=== PATIENT | male | born 1995 | race Caucasian/White ===

== ENCOUNTER 2018-12-10 07:17 | Day surgery (SDC) | payer BC ==
[2018-12-05 12:03] VITALS: BMI 27.3
[~2018-12-10 07:17] MED LIST: DEXAMETHASONE SOD PHOSPHATE 10 MG/ML 1 ML VIAL IV ONE; DEXAMETHASONE SOD PHOSPHATE 4 MG/ML 1 ML VIAL IV ONE; FAMOTIDINE 20 MG/2 ML VIAL IV ONE; HYDROmorphone 0.5 MG/0.5 ML SYRINGE IVP PRN; LACTATED RINGERS 1,000 ML IV SCH; LIDOCAINE 1% 20 ML VIAL (10MG/ML) FOR IV START INTRADERMA PRN; ONDANSETRON 4 MG/2 ML VIAL IVP ONE; SCOPOLAMINE 1.5MG/72HR PATCH TRANSDERM ONE; ceFAZolin IN SWFI 2 GM/20 ML SYRINGE IVP ONE
[2018-12-10 07:48] VITALS: RESP 16
[2018-12-10] MEDS: OXYMETAZOLINE 0.05% NASL SPRAY 1 SPRAY BOTTLE NASAL ONE ×4 (07:49→08:11)
[2018-12-10 08:21] LABS: INR 0.9 (<1.2); Prothrombin Time 9.7 sec (9.0-12.0)
[2018-12-10] MEDS ORDERED: SUCCINYLCHOLINE CHLORIDE 100 MG/5 ML SYR IV ONE (08:50)
[2018-12-10] MEDS ORDERED: fentaNYL (PF) 50 MCG/ML 2 ML AMP ONE (08:50)
[2018-12-10] MEDS ORDERED: LIDOCAINE 1% INJ 10MG/ML (20 ML MDV) ONE (08:50)
[2018-12-10] MEDS ORDERED: MIDAZOLAM 2 MG/2 ML VIAL ONE (08:50)
[2018-12-10] MEDS ORDERED: PROPOFOL 10 MG/ML 20 ML VIAL IV ONE (08:50)
[2018-12-10] MEDS ORDERED: LIDOCAINE 1%-EPI 1:100,000 20 ML VIAL SQ ONE ×2 (09:02)
--- NOTE | 2018-12-10 09:30 | P.OP ---
Date of Procedure: 12/10/18 Preoperative Diagnosis: Deviated nasal septum Inferior turbinate hypertrophy Postoperative Diagnosis: Same Procedure(s) Performed: Septoplasty Outfracture and submucous resection of the inferior turbinates Anesthesia: SAL Surgeon: Tonio Lo Estimated Blood Loss (ml): 5 Pathology: other (Nasal septal bone and cartilage) Condition: stable Disposition: PACU Indications for Procedure: This is a 23-year-old male whose had difficulties with chronic nasal airway obstruction bilaterally right greater than left with a deviated nasal septum as well as inferior turbinate hypertrophy noted. He did not improve with steroid nasal spray Operative Findings: Nasal septum deviated to the right obstructing impression a 90% of the nasal cavity, inferior turbinate hypertrophy Description of Procedure: Patient brought in the operative suite and placed in a supine position. Patient underwent induction of general anesthesia with oral endotracheal intubation without difficulty. The patient was prepped and draped in usual aseptic fashion. 1% lidocaine with 1-100,000 epinephrine was infused submucosally both sides nasal septum. While this is a vasoconstrictive effect the inferior turbinates were infractured the [place] elevator and partial submucous resection inferior turbinates performed with the Cob[place] wand this ablating a portion of the submucosal soft tissue. They were then outfractured with the [place] elevator. A left hemitransfixion incision was made with the mucoperichondrial decompress the flap on the left elevated. Bony cartilaginous junction was disarticulated and across flap on the right was elevated. Bony nasal septal deformities were removed Ave forceps. An inferior cartilaginous strip was removed leaving a full 1.5 cm caudal strut. Checking intranasally this corrected nasoseptal deformities and the hemitransfixion incision was closed with a running 4-0 chromic suture. The patient was then suctioned in oral gastric fashion. The patient allowed to emerge from general anesthesia having tolerated procedure well was extubated in the operating suite and transferred postoperative recovery area in satisfactory condition
[2018-12-10 09:48] VITALS: TEMP 97
[2018-12-10 10:50] VITALS: BP 107/63; PULSE 63
== END 2018-12-10 11:15 | disposition home or self-care (01) ==
LOC: OR 07:17
PROVIDERS: ATTEND Otolaryngology
DX: J34.2 Deviated nasal septum (principal); J34.3 Hypertrophy of nasal turbinates; Z79.01 Long term (current) use of anticoagulants; Z95.2 Presence of prosthetic heart valve; Z82.49 Family history of ischemic heart disease and other diseases of the circulatory system; Z98.61 Coronary angioplasty status
CPT/HCPCS: 85610; 88300; 30520; 30140; J2250; J1100; J2405; J2001; J3010; J0330; J2704; J0690

== ENCOUNTER 2019-10-05 14:10 | Inpatient (IN) | payer BC ==
[2019-10-05] MEDS ORDERED: IPRATROPIUM-ALBUTEROL 3 ML NEB INHALATION STA (14:33)
[2019-10-05] MEDS ORDERED: SODIUM CHLORIDE 0.9% 500 ML 500 ML IV STA (14:33)
[2019-10-05 15:23] LABS: ALT 22 U/L (4-49); AST 48 U/L (17-59); African American GFR (CKD) >90 (>60 ml/min/1.73 sqM); Albumin 3.7 g/dL (3.5-5.0); Alkaline Phosphatase 71 U/L (38-126); Anion Gap 6 mmol/L; Blood Urea Nitrogen 23 mg/dL (9-20); Calcium 8.7 mg/dL (8.4-10.2); Carbon Dioxide 25 mmol/L (22-30); Chloride 104 mmol/L (98-107); Glucose 88 mg/dL (74-99); Magnesium 1.9 mg/dL (1.6-2.3); Non-African American GFR(CKD) >90 (>60 ml/min/1.73 sqM); Potassium 4.5 mmol/L (3.5-5.1); Sodium 135 mmol/L (137-145); Total Protein 6.2 g/dL (6.3-8.2)
[2019-10-05 15:24] LABS: Basophils # (A) 0.1 k/uL (0-0.2); Basophils % (A) 1 %; Eosinophils # (A) 0.7 k/uL (0-0.7); Eosinophils % (A) 7 %; HCT 48.1 % (39.0-53.0); HGB 16.5 gm/dL (13.0-17.5); Lymphocytes # (A) 2.6 k/uL (1.0-4.8); Lymphocytes % (A) 26 %; MCH 30.7 pg (25.0-35.0); MCHC 34.4 g/dL (31.0-37.0); MCV 89.2 fL (80.0-100.0); Mean Platelet Volume 8.1; Monocytes # (A) 0.6 k/uL (0-1.0); Monocytes % (A) 6 %; Neutrophils % (A) 59 %; Platelet Count 264 k/uL (150-450); RBC 5.39 m/uL (4.30-5.90); RDW 13.3 % (11.5-15.5); WBC 10.2 k/uL (3.8-10.6)
--- NOTE | 2019-10-05 15:29 | XR ---
EXAMINATION TYPE: XR chest 2V DATE OF EXAM: 10/05/2019 COMPARISON: 01/09/2016 HISTORY: Difficulty breathing TECHNIQUE: Frontal and lateral views of the chest are obtained. FINDINGS: Cardiomegaly with pulmonary venous congestion and interstitial edema as well as small effusions. No evidence for pneumothorax. No pleural effusion. The cardiac silhouette size is within normal limits. The osseous structures are grossly intact. IMPRESSION: 1. Findings are felt to reflect interstitial edema. Infiltrates of other etiology not excluded.
[2019-10-05 15:31] LABS: Partial Thromboplastin Time 24.9 sec (22.0-30.0); Prothrombin Time 10.3 sec (9.0-12.0)
[2019-10-05] MEDS ORDERED: HEPARIN SODIUM,PORCINE 5,000 UNIT/ML 1 ML VIAL IV PRN (16:14)
[2019-10-05] MEDS ORDERED: HEPARIN SODIUM,PORCINE 5,000 UNIT/ML 1 ML VIAL IV ONE (16:14)
[2019-10-05] MEDS ORDERED: HEPARIN SOD,PORK IN 0.45% NACL 25,000 UNIT in 0.45% NACL 1 250ML.BAG IV SCH (16:15)
--- NOTE | 2019-10-05 16:15 | ED ---
General Adult HPI <Kenji De Santiago - Last Filed: 10/05/19 18:40> - General Source: patient, RN notes reviewed Mode of arrival: ambulatory Limitations: no limitations <Arvind Justice - Last Filed: 10/05/19 18:46> - General Chief complaint: Shortness of Breath Stated complaint: LISET Time Seen by Provider: 10/05/19 14:24 - History of Present Illness Initial comments: This a 23-year-old male presents emergency Department chief complaint of cough congestion chest pain shortness breath. Patient states has not felt well over the last weeks had some URI symptoms. Patient states noticed that he's had mildly productive cough he states he did have some bloody sputum.. Reports productive fevers chills. Patient was seen by his PCP prior arrival. Sent over for further evaluation. He states that he had an EKG there that did not show any specific findings. 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 Patient states he takes Coumadin as he is mechanical valve. Patient states that he has a moderate monthly but states that number is up and down quite often. Patient denies any leg pain, leg swelling he states he does have some mild exertional dyspnea. (Arvind Justice) - Related Data Home Medications Medication Instructions Recorded Confirmed Warfarin [Coumadin] 10 mg PO HS 03/10/15 10/05/19 Allergies Allergy/AdvReac Type Severity Reaction Status Date / Time No Known Allergies Allergy Verified 10/05/19 15:38 Review of Systems ROS Other: All systems not noted in ROS Statement are negative. <Kenji De Santiago - Last Filed: 10/05/19 18:40> ROS Other: All systems not noted in ROS Statement are negative. <Arvind Justice - Last Filed: 10/05/19 18:46> ROS Statement: Those systems with pertinent positive or pertinent negative responses have been documented in the HPI. Past Medical History Additional Past Medical History / Comment(s): ANGIOPLASTY - AORTA FOR HEART MURMUR , WISDOM TEETH , "LEAKY AORTIC VALVE"- HAD AORTIC VALVE REPLACEMENT (MECHANICAL) History of Any Multi-Drug Resistant Organisms: None Reported Additional Past Surgical History / Comment(s): ANGIOPLASTY, AORTIC VALVE REPLACEMENT (MECHANICAL) Past Anesthesia/Blood Transfusion Reactions: No Reported Reaction Past Psychological History: Anxiety Smoking Status: Never smoker Past Alcohol Use History: None Reported Past Drug Use History: None Reported - Past Family History Mother Family Medical History: No Reported History <Arvind Justice - Last Filed: 10/05/19 18:46> General Exam Limitations: no limitations General appearance: alert, in no apparent distress Head exam: Present: atraumatic, normocephalic, normal inspection Eye exam: Present: normal appearance, PERRL, EOMI. Absent: scleral icterus, conjunctival injection, periorbital swelling ENT exam: Present: normal exam, normal oropharynx, mucous membranes moist Neck exam: Present: normal inspection, full ROM. Absent: tenderness, meningismus, lymphadenopathy Respiratory exam: Present: wheezes. Absent: normal lung sounds bilaterally, respiratory distress, rales, rhonchi, stridor Cardiovascular Exam: Present: normal rhythm, tachycardia, normal heart sounds, systolic murmur (Aortic). Absent: diastolic murmur, rubs, gallop, clicks GI/Abdominal exam: Present: soft, normal bowel sounds. Absent: distended, tenderness, guarding, rebound, rigid Extremities exam: Present: pedal edema <Arvind Justice - Last Filed: 10/05/19 18:46> Course <Kenji De Santiago - Last Filed: 10/05/19 18:40> Vital Signs 10/05/19 10/05/19 10/05/19 14:10 14:53 15:04 Temperature 98.0 F Pulse Rate 106 H 90 92 Respiratory 20 Rate Blood Pressure 99/63 O2 Sat by Pulse 95 Oximetry 10/05/19 16:15 Temperature 98.1 F Pulse Rate 101 H Respiratory 20 Rate Blood Pressure 92/43 O2 Sat by Pulse 96 Oximetry - Reevaluation(s) Reevaluation #1: 10/05/19 18:40 PA supervision: I proceeded evaluation this case patient is presenting with congestive heart failure symptoms no shortness of breath exertional dyspnea. He does have a mildly elevated troponin and evidence of elevated BNP x-ray shows findings consistent with congestive heart failure. Dr. Manzano was consulted and did come see the patient in emergency department. CT chest was done no evidence of dissection no evidence of PE. Consistent with CHF. Patient be admitted patient will be admitted to Dr. coley a service with cardiology consultation (eKnji De Santiago) Medical Decision Making - Lab Data Result diagrams: 10/05/19 14:43 10/05/19 14:43 <Kenji De Santiago - Last Filed: 10/05/19 18:40> - Lab Data Result diagrams: 10/05/19 14:43 10/05/19 14:43 <Arvind Justice - Last Filed: 10/05/19 18:46> - Medical Decision Making 23-year-old male presented for cough congestion, shortness breath and chest pain. Patient lab reveal evidence of elevated troponin, elevated BMP. Cardiology was contacted, evaluated in the emergency department by dance hall host/hostess who feel this is most likely related to myocarditis. Patient be admitted for repeat troponin, heparin, Lasix. (Arvind Justice) - Lab Data Lab Results 10/05/19 10/05/19 10/05/19 Range/Units 14:43 14:43 14:43 WBC 10.2 (3.8-10.6) k/uL RBC 5.39 (4.30-5.90) m/uL Hgb 16.5 (13.0-17.5) gm/dL Hct 48.1 (39.0-53.0) % MCV 89.2 (80.0-100.0) fL MCH 30.7 (25.0-35.0) pg MCHC 34.4 (31.0-37.0) g/dL RDW 13.3 (11.5-15.5) % Plt Count 264 (150-450) k/uL Neutrophils % 59 % Lymphocytes % 26 % Monocytes % 6 % Eosinophils % 7 % Basophils % 1 % Neutrophils # 6.0 (1.3-7.7) k/uL Lymphocytes # 2.6 (1.0-4.8) k/uL Monocytes # 0.6 (0-1.0) k/uL Eosinophils # 0.7 (0-0.7) k/uL Basophils # 0.1 (0-0.2) k/uL PT (9.0-12.0) sec INR (<1.2) APTT (22.0-30.0) sec D-Dimer (<0.60) mg/L FEU Sodium 135 L (137-145) mmol/L Potassium 4.5 (3.5-5.1) mmol/L Chloride 104 (98-107) mmol/L Carbon Dioxide 25 (22-30) mmol/L Anion Gap 6 mmol/L BUN 23 H (9-20) mg/dL Creatinine 1.10 (0.66-1.25) mg/dL Est GFR (CKD-EPI)AfAm >90 (>60 ml/min/1.73 sqM) Est GFR (CKD-EPI)NonAf >90 (>60 ml/min/1.73 sqM) Glucose 88 (74-99) mg/dL Calcium 8.7 (8.4-10.2) mg/dL Magnesium 1.9 (1.6-2.3) mg/dL Total Bilirubin 1.0 (0.2-1.3) mg/dL AST 48 (17-59) U/L ALT 22 (4-49) U/L Alkaline Phosphatase 71 (38-126) U/L Troponin I (0.000-0.034) ng/mL NT-Pro-B Natriuret Pep 9530 pg/mL Total Protein 6.2 L (6.3-8.2) g/dL Albumin 3.7 (3.5-5.0) g/dL Influenza Type A RNA (Not Detectd) Influenza Type B (PCR) (Not Detectd) 10/05/19 10/05/19 10/05/19 Range/Units 14:43 14:43 14:43 WBC (3.8-10.6) k/uL RBC (4.30-5.90) m/uL Hgb (13.0-17.5) gm/dL Hct (39.0-53.0) % MCV (80.0-100.0) fL MCH (25.0-35.0) pg MCHC (31.0-37.0) g/dL RDW (11.5-15.5) % Plt Count (150-450) k/uL Neutrophils % % Lymphocytes % % Monocytes % % Eosinophils % % Basophils % % Neutrophils # (1.3-7.7) k/uL Lymphocytes # (1.0-4.8) k/uL Monocytes # (0-1.0) k/uL Eosinophils # (0-0.7) k/uL Basophils # (0-0.2) k/uL PT 10.3 (9.0-12.0) sec INR 1.0 (<1.2) APTT 24.9 (22.0-30.0) sec D-Dimer 0.68 H (<0.60) mg/L FEU Sodium (137-145) mmol/L Potassium (3.5-5.1) mmol/L Chloride (98-107) mmol/L Carbon Dioxide (22-30) mmol/L Anion Gap mmol/L BUN (9-20) mg/dL Creatinine (0.66-1.25) mg/dL Est GFR (CKD-EPI)AfAm (>60 ml/min/1.73 sqM) Est GFR (CKD-EPI)NonAf (>60 ml/min/1.73 sqM) Glucose (74-99) mg/dL Calcium (8.4-10.2) mg/dL Magnesium (1.6-2.3) mg/dL Total Bilirubin (0.2-1.3) mg/dL AST (17-59) U/L ALT (4-49) U/L Alkaline Phosphatase (38-126) U/L Troponin I 1.110 H* (0.000-0.034) ng/mL NT-Pro-B Natriuret Pep pg/mL Total Protein (6.3-8.2) g/dL Albumin (3.5-5.0) g/dL Influenza Type A RNA (Not Detectd) Influenza Type B (PCR) (Not Detectd) 10/05/19 Range/Units 15:48 WBC (3.8-10.6) k/uL RBC (4.30-5.90) m/uL Hgb (13.0-17.5) gm/dL Hct (39.0-53.0) % MCV (80.0-100.0) fL MCH (25.0-35.0) pg MCHC (31.0-37.0) g/dL RDW (11.5-15.5) % Plt Count (150-450) k/uL Neutrophils % % Lymphocytes % % Monocytes % % Eosinophils % % Basophils % % Neutrophils # (1.3-7.7) k/uL Lymphocytes # (1.0-4.8) k/uL Monocytes # (0-1.0) k/uL Eosinophils # (0-0.7) k/uL Basophils # (0-0.2) k/uL PT (9.0-12.0) sec INR (<1.2) APTT (22.0-30.0) sec D-Dimer (<0.60) mg/L FEU Sodium (137-145) mmol/L Potassium (3.5-5.1) mmol/L Chloride (98-107) mmol/L Carbon Dioxide (22-30) mmol/L Anion Gap mmol/L BUN (9-20) mg/dL Creatinine (0.66-1.25) mg/dL Est GFR (CKD-EPI)AfAm (>60 ml/min/1.73 sqM) Est GFR (CKD-EPI)NonAf (>60 ml/min/1.73 sqM) Glucose (74-99) mg/dL Calcium (8.4-10.2) mg/dL Magnesium (1.6-2.3) mg/dL Total Bilirubin (0.2-1.3) mg/dL AST (17-59) U/L ALT (4-49) U/L Alkaline Phosphatase (38-126) U/L Troponin I (0.000-0.034) ng/mL NT-Pro-B Natriuret Pep pg/mL Total Protein (6.3-8.2) g/dL Albumin (3.5-5.0) g/dL Influenza Type A RNA Not Detected (Not Detectd) Influenza Type B (PCR) Not Detected (Not Detectd) Critical Care Time Critical Care Time: Yes Total Critical Care Time: 35 <Arvind Justice - Last Filed: 10/05/19 18:46> Critical Care Time: Total 35 minutes of critical care time were used initially evaluated patient and review past medical history, medications. I did order labs including CBC, CMP, troponin, BMP, d-dimer. Patient's found to have some mild changes in his EKG and V1 through V4, troponin is elevated at 1.1 with a BNP of 9500. Patient does have some evidence of pulmonary edema on chest x-ray Lasix was given at this time. Patient was started on heparin as he is subtherapeutic on his INR from Coumadin. Patient's case discussed with dance hall host/hostess who evaluated the patient in the emergency department and feel this is related to myocarditis as she's had some URI symptoms. Patient will be admitted for further evaluation, repeat troponin, echocardiogram, Lasix. (Arvind Justice) Disposition <Kenji De Santiago - Last Filed: 10/05/19 18:40> <Arvind Justice - Last Filed: 10/05/19 18:46> Clinical Impression: NSTEMI (non-ST elevated myocardial infarction), Acute CHF Disposition: ADMITTED IP TO THIS HOSP Condition: Serious Referrals: Paolo Dolan MD [Primary Care Provider] - 1-2 days
[2019-10-05] MEDS ORDERED: ASPIRIN 81 MG PO STA (16:41)
[2019-10-05] MEDS ORDERED: FUROSEMIDE 10 MG/ML 4 ML VIAL IV STA (17:01)
--- NOTE | 2019-10-05 18:33 | CT ---
EXAMINATION TYPE: CT chest angio for PE DATE OF EXAM: 10/05/2019 COMPARISON: None HISTORY: Shortness of breath and cough CT DLP: 492.1 mGycm Automated exposure control for dose reduction was used. CONTRAST: Performed with IV Contrast, patient injected with 100 mL of Isovue 370. There are 3-D post processed images. There is patchy pulmonary edema. There is some patchy mild nodular infiltrate in both lungs. Heart si ze is normal. There are bilateral pleural effusions. There is no mediastinal adenopathy. There are sternal wires. There is apparent cardiac valve surgery. There is normal contrast opacification of the pulmonary arteries. I see no filling defect. There is e ctasia of the ascending aorta measures 4.2 cm. There is no dissection. The bony thorax is intact. Upp er abdominal soft tissues are intact. IMPRESSION: No evidence of pulmonary embolism. Moderate pulmonary edema with pleural effusions. I would consider congestive heart failure or RDS. 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
[2019-10-05] MEDS ORDERED: NITROGLYCERIN SL TABS 0.4 MG TAB SUBLINGUAL PRN (18:40)
[2019-10-05] MEDS: FUROSEMIDE 10 MG/ML 4 ML VIAL IV SCH (21:04)
--- NOTE | 2019-10-06 01:14 | CONS ---
CONSULTATION CHIEF COMPLAINT: Shortness of breath This is a 23-year-old gentleman with history of aortic valve replacement, who presented to hospital complaining of cough, chest congestion and shortness of breath. He initially presented. Cardiology had been consulted because of mildly elevated troponin. The patient has fever and some chills also. Yesterday, he has had some blood-stained sputum. The patient has history of aortic valve replacement secondary to congenital aortic stenosis apparently at the age of 14 and he is on Coumadin. His INRs are followed at [facility]. At the time of my evaluation in the emergency room, the patient appears comfortable at rest. He is not in distress. Heart rate is elevated. His influenza testing has been negative. INR is subtherapeutic at 1. Patient is currently on IV heparin. His EKG shows sinus rhythm with early repolarization changes. I do not see any acute ST-segment elevation or ischemic T-wave inversions and the patient's troponin is elevated as is the BNP. There are multiple etiological possibilities of the patient's clinical presentation including a viral infection with myopericarditis problem related to his underlying prosthetic valve and we certainly have to rule out a bacterial infection in a patient who has mechanical valve and thrombosis of mechanical valve due to sub optimal anticoagulation. I am not convinced at this time that we are dealing with myocardial ischemia. The patient's INR is subtherapeutic. He needs to be on IV heparin. We will obtain a 2D echo on him tomorrow morning. CT scan of the chest to assess the aortic root given the mechanical aortic valve and I will also obtain a set of blood cultures on him. The patient received IV Lasix and will decide on further course. We will obtain records from [facility]. We will optimize therapy based on what his investigation shows. PAST MEDICAL HISTORY: Significant for aortic valve replacement. MEDICATIONS: Medications at home include Coumadin. ALLERGIES: There are no known drug allergies. FAMILY HISTORY: Negative for premature coronary artery disease. SOCIAL HISTORY: Negative for current smoking, EtOH abuse, or drug abuse. REVIEW OF SYSTEMS: HEENT is unremarkable. Cardiac as described above. Respiratory as described above. GI negative. Genitourinary negative. Allergy/Immunology: Negative. SKIN: Negative. Musculoskeletal negative. Endocrine, hematological negative. Derm negative. CONSTITUTIONAL: Significant for fever, cough, not feeling well. Rest of the system review is not relevant. EXAM: Patient is comfortable at rest. Heart rate is 100 beats per minute. Afebrile. Blood pressure is 92/43, respiratory rate is 20, O2 sat is 96% on 2 L. There is no jugular venous distention. Chest exam reveals good air entry. I do not hear any crackles or rhonchi. Heart exam reveals first and second heart sounds and ejection systolic murmur. Prosthetic valve sound is not heard clearly. Abdomen is soft. Exam of the extremities did not reveal any edema. Peripheral pulses are felt. ASSESSMENT: 1. Status post aortic valve replacement- rule out infective endocarditis prosthetic valve problems including thrombosis 2. Shortness of breath with elevated BNP suggestive of congestive heart failure. 3. Elevated troponin and rule out myopericarditis. PLAN: We will obtain a 2D echo. CT scan of the chest. Blood cultures. IV heparin because of subtherapeutic INR in a patient with mechanical valve, review his records from [facility]. The patient will be admitted [facility] and depending upon his tests results and is how he evolves, we will decide on further course of action in a patient who is subtherapeutic anticoagulated and aortic valve valve thrombosis is also a consideration. MMODL / IJN: [id number] / MTDD
[2019-10-06 07:04] LABS: Basophils # (A) 0.1 k/uL (0-0.2); Basophils % (A) 1 %; Eosinophils # (A) 0.7 k/uL (0-0.7); Eosinophils % (A) 7 %; HCT 46.2 % (39.0-53.0); HGB 15.7 gm/dL (13.0-17.5); Lymphocytes # (A) 2.6 k/uL (1.0-4.8); Lymphocytes % (A) 27 %; MCH 30.8 pg (25.0-35.0); MCV 90.8 fL (80.0-100.0); Mean Platelet Volume 7.5; Monocytes # (A) 0.5 k/uL (0-1.0); Monocytes % (A) 6 %; Neutrophils # (A) 5.7 k/uL (1.3-7.7); Neutrophils % (A) 58 %; Platelet Count 212 k/uL (150-450); RBC 5.09 m/uL (4.30-5.90); RDW 13.1 % (11.5-15.5); WBC 9.8 k/uL (3.8-10.6)
[2019-10-06 07:12] LABS: Partial Thromboplastin Time 51.2 sec (22.0-30.0); Prothrombin Time 10.4 sec (9.0-12.0)
[2019-10-06 07:27] LABS: Cholesterol 177 mg/dL (<200); HDL Cholesterol 49 mg/dL (40-60); LDL Cholesterol,Calculated 112 mg/dL (0-99); Triglycerides 78 mg/dL (<150)
[2019-10-06 08:40] VITALS: TEMP 98.7
[2019-10-06] MEDS: FUROSEMIDE 10 MG/ML 4 ML VIAL IV SCH (08:41)
[2019-10-06] MEDS ORDERED: ASPIRIN 325 MG TAB PO SCH (09:00)
--- NOTE | 2019-10-06 09:18 | P.PN ---
Subjective Progress Note Date: 10/06/19 This is a 23-year-old gentleman with history of aortic valve replacement secondary to congenital aortic stenosis at the age of 14, he takes Coumadin. His INR on admission here was subtherapeutic at 1. He states that it's been quite sometime since he's had his INR checked. He usually takes 10 mg of Coumadin per day. Patient initially presented to the hospital on this occasion with symptoms of progressively worsening shortness of breath which she states she's been experiencing for the past couple of weeks at work when he lifts heavy things or walks a short distance, in the past few days he states that the shortness of breath has been present even with minimal activity, he has significant PND and orthopnea. Denies any recent fever or chills at home. Patient was seen last evening in consultation by Dr. Manzano, his chest x-ray showed interstitial pulmonary edema. A CTA of the chest was performed which did not reveal evidence of a pulmonary embolism. Moderate pulmonary edema with b ilateral pleural effusions. Aneurysm of the ascending aorta. His EKG on presentation here showed a sinus tachycardia with nonspecific ST-T wave changes. The patient has been afebrile here, blood pressure running in the 90s systolic. He needs to be tachycardic this morning. His white blood cell count is normal at 9.8, hemoglobin 15.7, platelet count 212. Troponins 1.1, 1.3, 1.6. Initial BNP on presentation here 9530. Influenza A and B-. The patient was given an aspirin on arrival and initiated on IV heparin which she continues to be on at this time. He was also started on IV Lasix. The patient's blood pressure this morning 85/40 with a heart rate of 108, 94% on 4 L of oxygen. Objective - Vital Signs Vital signs: Vital Signs Temp 98.7 F 10/06/19 07:50 Pulse 109 H 10/06/19 07:50 Resp 16 10/06/19 07:50 BP 85/49 10/06/19 07:50 Pulse Ox 91 L 10/06/19 07:54 Intake & Output 10/05/19 10/06/19 10/06/19 18:59 06:59 18:59 Intake Total 611.293 Output Total 1250 Balance -638.707 Weight 85.956 kg Intake: Intake, IV Titration 611.293 Amount Heparin Sod,Pork in 0.45% 111.293 NaCl 25,000 unit In 0.45 % NaCl 1 250ml.bag @ 11.6 UNITS/KG/HR 9.971 mls/hr IV .Q24H [facility] Rx#: [id number] Sodium Chloride 0.9% 500 500 ml 500 ml @ 999 mls/hr IV .Q31M [facility] Rx#:[id number] Output: Urine 1250 - Exam PHYSICAL EXAMINATION: GENERAL: 23-year-old gentleman in no acute distress at the time of my examination HEENT: Head is atraumatic, normocephalic. Pupils equal, round. Sclera anicteric. Conjunctiva are clear. Mucous membranes of the mouth are moist. N jhoan is supple. There is elevated jugular venous pressure. No carotid bruit is heard. HEART EXAMINATION: Heart S1 and S2 systolic ejection murmur is heard in the aortic and mitral area, prosthetic valve sound heard CHEST EXAMINATION: Lungs reveal diminished air entry bilaterally ABDOMEN: Soft, nontender. Bowel sounds are heard. No organomegaly noted. EXTREMITIES: 2+ peripheral pulses with no evidence of peripheral edema and no calf tenderness noted. NEUROLOGIC patient is awake, alert and oriented 3 . . - Labs CBC & Chem 7: 10/06/19 06:47 10/05/19 14:43 Labs: Abnormal Lab Results - Last 24 Hours (Table) 10/05/19 10/05/19 10/05/19 Range/Units 14:43 14:43 14:43 APTT (22.0-30.0) sec D-Dimer 0.68 H (<0.60) mg/L FEU Sodium 135 L (137-145) mmol/L BUN 23 H (9-20) mg/dL Troponin I 1.110 H* (0.000-0.034) ng/mL Total Protein 6.2 L (6.3-8.2) g/dL LDL Cholesterol, Calc (0-99) mg/dL 10/05/19 10/05/19 10/06/19 Range/Units 21:50 21:50 02:25 APTT 34.6 H (22.0-30.0) sec D-Dimer (<0.60) mg/L FEU Sodium (137-145) mmol/L BUN (9-20) mg/dL Troponin I 1.340 H* 1.680 H* (0.000-0.034) ng/mL Total Protein (6.3-8.2) g/dL LDL Cholesterol, Calc (0-99) mg/dL 10/06/19 10/06/19 Range/Units 06:47 06:47 APTT 51.2 H (22.0-30.0) sec D-Dimer (<0.60) mg/L FEU Sodium (137-145) mmol/L BUN (9-20) mg/dL Troponin I (0.000-0.034) ng/mL Total Protein (6.3-8.2) g/dL LDL Cholesterol, Calc 112 H (0-99) mg/dL Assessment and Plan Plan: Assessment and plan #1 congestive heart failure, LV function unknown #2 sinus tachycardia #3 history of mechanical aortic valve replacement with subtherapeutic INR on presentation #4 abnormal troponins, 1.1, 1.3, 1.6. EKG shows a sinus tachycardia with nonspecific ST-T wave changes. Plan An echocardiogram with Doppler study was performed this morning, [facility] Patient has been initiated on IV Lasix as well as IV heparin. He remains hypotensive, once the blood pressure improves we will attempt to start a small dose of beta gem. Overall prognosis guarded. DNP note has been reviewed, I agree with a documented findings and plan of care. Patient was seen and examined.
[2019-10-06] MEDS ORDERED: NOREPINEPHRINE 4 MG in SODIUM CHLORIDE 0.9% 250 ML IV SCH (10:15)
--- NOTE | 2019-10-06 10:33 | PN ---
PROGRESS NOTE This is a 23-year-old gentleman with history of aortic valve replacement. seen patient late yesterday evening when he presented with symptoms of shortness of breath and had elevated troponin and congestive heart failure. This morning, he appears comfortable at rest, has shortness of breath with O2 saturation of around 94% on 4 L with a heart rate around 105 beats per minute. Chest exam does not reveal crackles. Heart exam reveals first and second heart sounds ejection systolic murmur in the aortic area. Prosthetic valve sound is not heard. Abdomen is soft. Exam of the extremities did not reveal any edema. The patient had a CT scan of the chest last night and that was negative for pulmonary embolism, had pulmonary congestion. He had an echocardiogram done this morning, which has been interpreted at [facility]. I do not have the official report, but apparently patient has significant prosthetic valve obstruction in a patient who has subtherapeutic anticoagulation.Pt is hypotensive and will start levophed. He recieved lasix earlier. 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 MMODL / IJN: [id number] / [id number]
--- NOTE | 2019-10-06 10:45 | P.HPIM ---
History of Present Illness 23-year-old male presented to family physician with complaints of shortness of breath and cough. Complaining of substernal chest pain with sweats. Patient states he has not felt well for 2 weeks accelerated yesterday. Patient has history of congenital aortic stenosis had angioplasty at age 12 H 16 valve replacement prosthetic. Patient had cardiology consultation here was agreed to transfer to [facility] to a Dr. Mills Review of Systems Cardiovascular: Reports chest pain, Reports dyspnea on exertion Respiratory: Reports cough, Reports cough with sputum, Reports dyspnea Past Medical History Additional Past Medical History / Comment(s): Valve angioplasty at age 12 yrs d/t congenital aortic stenosis-unsuccessful, mechanical aortic valve replacement at age 14 yrs-had pneumothorax/chest tube, bronchitis. History of Any Multi-Drug Resistant Organisms: None Reported Past Surgical History: Cardiac Valve Replacement Additional Past Surgical History / Comment(s): Attempted valve angioplasty, mechanical aortic valve replacement, septoplasty, wisdom teeth extractions. Past Anesthesia/Blood Transfusion Reactions: Postoperative Nausea & Vomiting (PONV) Smoking Status: Never smoker - Past Family History Mother Family Medical History: No Reported History Additional Family Medical History / Comment(s): Anxiety Father Family Medical History: No Reported History Additional Family Medical History / Comment(s): Father is healthy. Medications and Allergies Home Medications Medication Instructions Recorded Confirmed Type Warfarin [Coumadin] 10 mg PO HS 03/10/15 10/05/19 History Allergies Allergy/AdvReac Type Severity Reaction Status Date / Time No Known Allergies Allergy Verified 10/05/19 15:38 Physical Exam Vitals: Vital Signs Temp Pulse Pulse Pulse Resp BP BP 10/06/19 07:54 10/06/19 07:50 98.7 F 109 H 16 85/49 10/06/19 05:00 103 H 20 94/58 10/06/19 04:00 97.8 F 99 20 93/65 10/06/19 03:00 101 H 20 90/54 10/06/19 02:46 102 H 20 90/47 10/06/19 01:34 102 H 90/46 10/06/19 00:00 120 H 16 96/54 10/05/19 23:50 105 H 24 10/05/19 20:00 105 H 105 H 25 H 96/59 10/05/19 19:07 102 H 18 90/59 10/05/19 17:00 108 H 23 95/55 10/05/19 16:15 98.1 F 101 H 20 92/43 10/05/19 15:04 92 10/05/19 14:53 90 10/05/19 14:10 98.0 F 106 H 20 99/63 Pulse Ox 10/06/19 07:54 91 L 10/06/19 07:50 94 L 10/06/19 05:00 97 10/06/19 04:00 9 L 10/06/19 03:00 94 L 10/06/19 02:46 10/06/19 01:34 10/06/19 00:00 98 10/05/19 23:50 10/05/19 20:00 93 L 10/05/19 19:07 93 L 10/05/19 17:00 98 10/05/19 16:15 96 10/05/19 15:04 10/05/19 14:53 10/05/19 14:10 95 Intake and Output 10/05/19 10/06/19 10/06/19 22:59 06:59 14:59 Intake Total 540 71.293 120 Output Total 700 550 Balance -160 -478.707 120 Intake: Intake, IV Titration 540 71.293 Amount Heparin Sod,Pork in 0.45% 40 71.293 NaCl 25,000 unit In 0.45 % NaCl 1 250ml.bag @ 11.6 UNITS/KG/HR 9.971 mls/hr IV .Q24H LIBBY Rx#: [id number] Sodium Chloride 0.9% 500 500 ml 500 ml @ 999 mls/hr IV .Q31M STA Rx#:[id number] Oral 120 Output: Urine 700 550 Other: Weight 85.956 kg - Constitutional General appearance: mild distress - EENT Eyes: PERRLA Ears: bilateral: normal - Neck Neck: normal ROM - Respiratory Respiratory: bilateral: rales - Cardiovascular Rhythm: regular Abnormal Heart Sounds: systolic murmur - Gastrointestinal General gastrointestinal: soft - Integumentary Integumentary: normal - Neurologic Neurologic: CNII-XII intact - Musculoskeletal Musculoskeletal: gait normal - Psychiatric Psychiatric: A&O x's 3, intact judgment & insight Results CBC & Chem 7: 10/06/19 06:47 10/05/19 14:43 Labs: Abnormal Lab Results - Last 24 Hours (Table) 10/05/19 10/05/19 10/05/19 Range/Units 14:43 14:43 14:43 APTT (22.0-30.0) sec D-Dimer 0.68 H (<0.60) mg/L FEU Sodium 135 L (137-145) mmol/L BUN 23 H (9-20) mg/dL Troponin I 1.110 H* (0.000-0.034) ng/mL Total Protein 6.2 L (6.3-8.2) g/dL LDL Cholesterol, Calc (0-99) mg/dL 10/05/19 10/05/19 10/06/19 Range/Units 21:50 21:50 02:25 APTT 34.6 H (22.0-30.0) sec D-Dimer (<0.60) mg/L FEU Sodium (137-145) mmol/L BUN (9-20) mg/dL Troponin I 1.340 H* 1.680 H* (0.000-0.034) ng/mL Total Protein (6.3-8.2) g/dL LDL Cholesterol, Calc (0-99) mg/dL 10/06/19 10/06/19 Range/Units 06:47 06:47 APTT 51.2 H (22.0-30.0) sec D-Dimer (<0.60) mg/L FEU Sodium (137-145) mmol/L BUN (9-20) mg/dL Troponin I (0.000-0.034) ng/mL Total Protein (6.3-8.2) g/dL LDL Cholesterol, Calc 112 H (0-99) mg/dL Chest x-ray: report reviewed CT scan - chest: report reviewed Thrombosis Risk Factor Assmnt - Choose All That Apply Any of the Below Risk Factors Present?: Yes Each Factor Represents 1 point: Acute VT, Heart failure (<1month), Obesity (BMI >25) Other Risk Factors: No Other congenital or acquired thrombophilia - If yes, enter type in comment: No Thrombosis Risk Factor Assessment Total Risk Factor Score: 3 Thrombosis Risk Factor Assessment Level: Moderate Risk Assessment and Plan Plan: Assessment Congenital aortic stenosis Aortic valve replacement with prosthetic valve age 14 angioplasty age 12 Consider infective endocarditis Chest pain Exertional dyspnea Plan Cardiology consultation Transfer [facility] to Dr. Mills
--- NOTE | 2019-10-06 10:48 | P.DS ---
Providers Date of admission: 10/05/19 18:46 Expected date of discharge: 10/06/19 Attending physician: Paolo Dolan Consults: 10/05/19 18:40 Consult Physician Urgent Consulting Provider: Filippo Manzano Consult Reason/Comments: NSTEMI, CHF Do you want consulting provider notified?: Already Contacted Primary care physician: Paolo Dolan [facility] Course: 23-year-old male presented to family physician with complaints of cough and shortness of breath exertional dyspnea. Patient has a history of congenital aortic stenosis angioplasty age 12 valve replacement prosthetic age 14. Patient had cardiology consult and arrangements for transfer to [facility] under the care of Assessment Congenital aortic stenosis Angioplasty age 12 Prosthetic valve replacement age 14 Consider infective endocarditis Plan transfer to [facility] to Dr. Mills Patient Condition at Discharge: Serious Plan - Discharge Summary Discharge Rx Participant: No New Discharge Prescriptions: No Action Warfarin [Coumadin] 10 mg PO HS Discharge Medication List Warfarin [Coumadin] 10 mg PO HS 03/10/15 [History] Follow up Appointment(s)/Referral(s): Paolo Dolan MD [Primary Care Provider] - 1-2 days
[2019-10-06 11:32] VITALS: BP 91/51; PULSE 96; RESP 18
--- NOTE | 2019-10-07 12:38 | CDI ---
Documentation Clarification Form Date: 10/07/19 From: Karen Cintron CCS Phone: If you have a question about this query, please contact Malaika Jauregui, Police Captain Senior at [phone] between 8am and 5pm. Admit Date: 10/05/19 Discharge Date: 10/06/19 Patient Name: Jj Sun Visit Number: [id number] ATTENTION: The Clinical Documentation Specialists (CDI) and [facility] Coding Staff appreciate your assistance in clarifying documentation. Please respond to the clarification below the line at the bottom and electronically sign. The CDI & [facility] Coding staff will review the response and follow-up if needed. Please note: Queries are made part of the Legal Health Record. If you have any questions, please contact the author of this message via ITS. Dear Dr. Manzano, CHF is documented in the EDNOTE, PNs, H&P, DS. History/Risk Factors: Valve replacement w/ thrombosis, Elevated troponin Clinical Indicators: Dyspnea, chest pain VS/Pulse OX: BP 92/43, RR 20, NE 101, O2 sat 96 BNP: 9530 Echocardiogram [facility]: [facility] Treatment: Lasix IV 40 mg IV In your professional opinion, can you please clarify the acuity and type of CHF if known? Systolic Heart Failure: Acute Chronic Acute on Chronic Diastolic Heart Failure: Acute Chronic Acute on Chronic Systolic & Diastolic Heart Failure: Acute Chronic Acute on Chronic Heart Failure Unable to Determine Other, please specify MTDD
--- NOTE | 2019-10-07 12:47 | CDI ---
Documentation Clarification Form Date: 10/07/19 From: Karen Cintron CCS Phone: If you have a question about this query, please contact Malaika Jauregui, Manager Enterprise at [phone] between 8am and 5pm. Admit Date: 10/05/19 Discharge Date: 10/06/19 Patient Name: Jj Sun Visit Number: [id number] ATTENTION: The Clinical Documentation Specialists (CDI) and [facility] Coding Staff appreciate your assistance in clarifying documentation. Please respond to the clarification below the line at the bottom and electronically sign. The CDI & [facility] Coding staff will review the response and follow-up if needed. Please note: Queries are made part of the Legal Health Record. If you have any questions, please contact the author of this message via ITS. Dear Dr. Manzano, Conflicting documentation has been found in the medical record: NSTEMI is documented in the EDNOTE. Elevated troponin is documented in the EDNOTE, PNs and Consult. History/Risk Factors: Valve replacement w/ thrombosis, CHF Clinical Indicators: Chest pain, dyspnea Troponin: 1.11, 1.34, 1.68 Treatment: Heparin 4,000 unit IV In your opinion, what is the most clinically appropriate diagnosis for this patient? Elevated troponin NSTEMI Type II NH Other explanation of clinical findings Unable to determine (no explanation for clinical finding) MTDD
--- NOTE | 2019-11-12 13:10 | CDI ---
Documentation Clarification Form Date: 11/12/19 From: Karen Cintron CCS Phone: If you have a question about this query, please contact Malaika Jauregui, Gauge Maker at [phone] between 8am and 5pm. Admit Date: 10/05/19 Discharge Date: 10/06/19 Patient Name: Jj Sun Visit Number: [id number] ATTENTION: The Clinical Documentation Specialists (CDI) and [facility] Coding Staff appreciate your assistance in clarifying documentation. Please respond to the clarification below the line at the bottom and electronically sign. The CDI & [facility] Coding staff will review the response and follow-up if needed. Please note: Queries are made part of the Legal Health Record. If you have any questions, please contact the author of this message via ITS. Dear Dr. Dolan, Conflicting documentation has been found in the medical record: NSTEMI is documented in the EDNOTE. Elevated troponin is documented in the EDNOTE, PNs and Consult. History/Risk Factors: Valve replacement w/ thrombosis, CHF Clinical Indicators: Chest pain, dyspnea Troponin: 1.11, 1.34, 1.68 Treatment: Heparin 4,000 unit IV In your opinion, what is the most clinically appropriate diagnosis for this patient? Elevated troponin Congestive heart failure MTDD
--- NOTE | 2019-11-12 13:14 | CDI ---
Documentation Clarification Form Date: 11/12/19 From: Karen Cintron CCS Phone: If you have a question about this query, please contact Malaika Jauregui, [employer] Supervisor at [phone] between 8am and 5pm. Admit Date: 10/05/19 Discharge Date: 10/06/19 Patient Name: Jj Sun Visit Number: [id number] ATTENTION: The Clinical Documentation Specialists (CDI) and [facility] Coding Staff appreciate your assistance in clarifying documentation. Please respond to the clarification below the line at the bottom and electronically sign. The CDI & [facility] Coding staff will review the response and follow-up if needed. Please note: Queries are made part of the Legal Health Record. If you have any questions, please contact the author of this message via ITS. Dear Dr. Dolan, CHF is documented in the EDNOTE, PNs, H&P, DS. History/Risk Factors: Valve replacement w/ thrombosis, Elevated troponin Clinical Indicators: Dyspnea, chest pain VS/Pulse OX: BP 92/43, RR 20, DE 101, O2 sat 96 BNP: 9530 Echocardiogram [facility]: [facility] Treatment: Lasix IV 40 mg IV In your professional opinion, can you please clarify the acuity and type of CHF if known? Systolic Heart Failure: Acute MTDD
== END 2019-10-06 11:38 | disposition designated cancer center or children's hospital (05) | DRG 314 ==
LOC: EC 14:10 → 6NMEDSUR 18:29 → UNDOADMOB 18:29 → 3SCARD 18:46
PROVIDERS: ADMIT Family Medicine; ATTEND Family Medicine
PROC: 3E033XZ Introduction of Vasopressor into Peripheral Vein, Percutaneous Approach (ICD-10-PCS; principal; 2019-10-06)
DX: T82.6XXA Infection and inflammatory reaction due to cardiac valve prosthesis, initial encounter (principal); I33.0 Acute and subacute infective endocarditis; I50.21 Acute systolic (congestive) heart failure; T82.867A Thrombosis due to cardiac prosthetic devices, implants and grafts, initial encounter; I71.2 Thoracic aortic aneurysm, without rupture; I95.9 Hypotension, unspecified; R07.89 Other chest pain; R00.0 Tachycardia, unspecified; R79.89 Other specified abnormal findings of blood chemistry; E66.9 Obesity, unspecified; R79.1 Abnormal coagulation profile; Z68.29 Body mass index [BMI] 29.0-29.9, adult; Z79.01 Long term (current) use of anticoagulants; Z98.890 Other specified postprocedural states; Z95.2 Presence of prosthetic heart valve; Z87.09 Personal history of other diseases of the respiratory system; Z86.59 Personal history of other mental and behavioral disorders; Z87.74 Personal history of (corrected) congenital malformations of heart and circulatory system; Z81.8 Family history of other mental and behavioral disorders
CPT/HCPCS: 36415; 71046; 71275; 80053; 80061; 83735; 83880; 84484; 85025; 85379; 85610; 85730; 87502; 93005; 93306; 94640; 96361; 96365; 96366; 96368; 96375; 96376; 99291